=== PATIENT | male | born 1965 | race Caucasian/White ===

== ENCOUNTER 2025-01-13 15:31 | Emergency (ER) | payer BC, SELFPAY ==
[2025-01-13 15:34] VITALS: BP 149/92
--- NOTE | 2025-01-13 17:34 | ED.GENMED ---
History of Present Illness
General
Chief Complaint: Rabies
Source: patient
Exam Limitations: none
Time Seen by Provider: 01/13/25 17:04
Nursing documentation reviewed up to this point in time: agreed with
History of Present Illness
History of Present Illness:
Patient is a 59-year-old healthy male who presents to the emergency department for rabies vaccination series after cat bite. Patient states a stray cat came in through his cat door yesterday evening. As he was attempting to remove the cat from his
home he was bit in the left hand. He washed the wound thoroughly. He was seen by his primary care provider today who updated his Tdap vaccine and started him on a course of Augmentin. However�sonia was referred to the emergency department for
rabies vaccination series initiation given this was a suspected stray/unknown cat.
Patient denies any fever or chills. He does have pain around bite figueroa of the left hand however denies any numbness/tingling in left hand or fingers. No other injury sustained.
Patient is unsure if he has ever completed a full course of the rabies vaccination series in the past. He was bit by a stray cat while in [place] over 20 years ago and states he received 'some type of vaccination' but it was only 1 dose.
Review of Systems
Review of Systems
Allergies reviewed?: Yes
All Other Systems: ROS reviewed and negative except as documented in HPI and ROS
Phy Exam
Physical Exam
Physical Exam:
Vitals: Hypertensive, otherwise vital signs stable. Afebrile
General: Patient is well appearing, no acute distress
Skin: Small puncture wound to left hand, both dorsal and palmar aspect surrounding first digit. Surrounding tenderness, edema, and mild erythema. No purulent drainage or active bleeding or wounds.
Head: Normocephalic, atraumatic
Throat: Protecting airway
Neck: Normal ROM, no cervical spine tenderness
Cardiac: Regular rate
Pulm: No apparent respiratory distress
Abdomen: Nondistended
Extremities: Puncture wound to left hand as above. No bony tenderness. No evidence of retained foreign body or tendon injury. Full range of motion left hand/digits against resistance. Normal sensation and capillary refill. 2+ palpable left
radial pulse.
Neuro: Grossly intact
Psychiatric: Normal affect.
Course
Orders/Labs/Results
Orders:
Orders
01/13/25 17:34
Ibuprofen [Motrin] 400 mg PO NOW STA
01/13/25 17:42
Rabies Immune Globulin/Pf [HyperRAB] 1,980 unit IM NOW STA
01/13/25 17:45
Rabies Vaccine (Pcec)/Pf [Rabavert Rabies Vacc W-Diluent] 2.5 unit IM .ONCE ONE
Vital Signs
Initial and Last Documented VS:
Initial Vital Signs
Temp Pulse Resp BP Pulse Ox
98.5 F 86 18 149/92 98
01/13/25 15:34 01/13/25 15:34 01/13/25 15:34 01/13/25 15:34 01/13/25 15:34
Last Documented Vital Signs
Temp Pulse Resp BP Pulse Ox
98.5 F 86 18 149/92 98
01/13/25 15:34 01/13/25 15:34 01/13/25 15:34 01/13/25 15:34 01/13/25 17:34
MDM/Problems Addressed
Differential Diagnosis Includes:
Not limited to: Puncture wound, cellulitis, soft tissue injury, need for rabies prophylaxis, etc.
MDM/Problems Addressed:
The patient is a 59-year-old male presenting to the ED for initiation of rabies post-exposure prophylaxis after being bitten on the left hand by a stray cat that entered his home. The bite occurred last night. The patient reports no other injuries.
He was initially evaluated by his primary care provider, who administered a tetanus booster and started him on Augmentin. Due to concerns for potential rabies exposure, he was referred to the ED for rabies vaccination series initiation.
On exam, a bite wound is noted on the left hand with surrounding erythema, tenderness, and mild edema. There is no purulence, drainage, or signs of deep infection. No neurovascular compromise is noted. No bony deformity appreciated. There is no
clinical evidence of systemic infection. An x-ray was offered to evaluate for possible underlying bony injury or foreign body; however, the patient declined imaging. Based on clinical evaluation, there is no high suspicion for bony injury.
The patient�s rabies vaccination history is uncertain. Given the nature of the exposure, we will proceed with full rabies PEP, including immunoglobulin and dose #1 of rabies vaccine today.
We discussed the rabies vaccination schedule, and the patient verbalized understanding and agreement with the plan. He will need to return for the remaining doses on schedule.
The patient remains clinically stable and is tolerating oral antibiotics well. He has been advised to continue Augmenting as prescribed by his PCP and to monitor for signs of local or systemic infection, including increasing redness, swelling,
warmth, purulent drainage, fever, or worsening pain. Return precautions reviewed.
Stable for discharge.
Chronic conditions affecting care:
N/A
Acute Exacerbation and/or Progression of Chronic Illness:
N/A
*Pulse Oximetry
SaO2: 98
Oxygen Mode of Delivery: Room air
Patient hypoxic: no
*EKG
Interpreted by ED Provider?: NA
*Manager Gyn Interpretation
Rate: Manager Gyn- N/A
*Critical Care Note
Total Time (30-74mins, 75-104mins- exclusive of procedures): Not Applicable
ED Attending Note
-
Portions of this chart may have been created with voice recognition software.� Occasional wrong word or��sound alike� substitutions may have occurred due to the inherent limitations of voice recognition software.
Discharge Plan
Departure
Patient Disposition: Home (Routine Discharge)
Date of Disposition: 01/13/25
Time of Disposition: 18:10
Patient with high blood pressure during this ER visit?: Yes
Condition: Good
Discharge Problem:
Cat bite of left hand, Rabies, need for prophylactic vaccination against
Instructions: Animal Bites (DC), BLOOD PRESSURE, Rabies
Prescriptions:
New
RabAvert (PF) 2.5 unit suspension for reconstitution
2.5 unit IM ONCE Qty: 3 0RF
Rx Instructions:
Inject 1mL on 01/16/25, 01/20/25, and 01/27/25
Referrals:
Alexis Bejarano MD [Family Provider, Internal Medicine]
Stand Alone Forms: Rabies Vaccine Post Exp Dosing
Activity Restrictions/Additional Instructions:
RETURN TO THE EMERGENCY DEPARTMENT ANY SIGNS OF INFECTION INCLUDING FEVER, CHILLS, PURULENT DRAINAGE FROM WOUND, SIGNIFICANT REDNESS, SWELLING, OR PAIN OF LEFT HAND, ANY VACCINE REACTION, OR ANY OTHER CONCERNS
- As discussed�you were given the rabies immunoglobulin and dose one of the rabies vaccine today in the emergency department. This is a 4 dose series. You will require additional doses on 01/16/25, 01/20/25, and 01/27/25. You can contact the
infusion clinic to have his vaccination schedule on week.
- It is important to take the Augmentin as prescribed by your primary care. Continue to keep wounds clean and dry. Monitor very closely for any signs of infection.
- Follow-up with primary care to ensure symptoms are improving/for further evaluation.
Monitor your symptoms closely and return to the emergency department for any acute worsening/new symptoms or any signs of worsening infection.
Interventions
Interventions:
*Risk Screen - Suicide Last Done: 01/13/25 15:34
*General Assessment Last Done: 01/13/25 15:34
*Neglect/Abuse Screening Last Done: 01/13/25 15:34
*ED- Fall Risk Assessment Last Done: 01/13/25 15:34
*ED COVID-19 Vaccine History Last Done: 01/13/25 15:34
*ED Influenza Vaccine History Last Done: 01/13/25 15:34
*Nursing Disposition Last Done: 01/13/25 18:35
Discharge Date and Time
Discharge Date/Time: 01/13/25 18:35
Print Language: GREEK
[2025-01-13] MEDS: MOTRIN 400 MG PO (18:05)
[2025-01-13] MEDS: RABAVERT RABIES VACC W-DILUENT 2.5 UNIT IM (18:05)
--- NOTE | 2025-01-13 18:09 | EDRN ---
Jose segovia for vaccine. Primo segovia, and Nini/Jose hanna for Ig.
== END 2025-01-13 18:35 | disposition home or self-care (01) ==
LOC: EMR 15:31
PROVIDERS: EMERGENCY PHYSICIAN Emergency Medicine; FAMILY PHYSICIAN Internal Medicine
DX: S61.432A Puncture wound without foreign body of left hand, initial encounter (principal); W55.01XA Bitten by cat, initial encounter; Z23 Encounter for immunization; Z29.14 Encounter for prophylactic rabies immune globulin
CPT/HCPCS: 96372; 90471; 99284; 90375; 90675

== ENCOUNTER 2025-01-27 15:15 | Outpatient (RCR) | payer BC, SELFPAY ==
[2025-01-15 15:13] VITALS: BP 146/86
[2025-01-15] MEDS: RABAVERT RABIES VACC W-DILUENT 2.5 UNIT IM (15:20)
[2025-01-20 08:32] VITALS: BP 138/79
[2025-01-20] MEDS: RABAVERT RABIES VACC W-DILUENT 2.5 UNIT IM (08:39)
[2025-01-27 15:19] VITALS: BP 127/75
[2025-01-27] MEDS: RABAVERT RABIES VACC W-DILUENT 2.5 UNIT IM (15:24)
== END 2025-01-28 10:41 | disposition home or self-care (01) ==
LOC: OID 15:15
PROVIDERS: ATTENDING PHYSICIAN Physician Assistant; FAMILY PHYSICIAN Internal Medicine
DX: Z20.3 Contact with and (suspected) exposure to rabies (principal); Z23 Encounter for immunization
CPT/HCPCS: 90471; 90675

== ENCOUNTER 2025-03-10 06:21 | Day surgery (SDC) | payer BC, SELFPAY | END 2025-03-10 11:18 | disposition home or self-care (01) | LOC: GI 06:21 | PROVIDERS: ATTENDING PHYSICIAN Internal Medicine | DX: Z12.11 Encounter for screening for malignant neoplasm of colon (principal); R19.5 Other fecal abnormalities; K64.8 Other hemorrhoids; K57.30 Diverticulosis of large intestine without perforation or abscess without bleeding; K63.5 Polyp of colon; K62.1 Rectal polyp | CPT/HCPCS: 45385; 45380; 88305 ==